=== PATIENT | female | born 1985 | race Caucasian/White ===

== ENCOUNTER → 2019-01-23 | Outpatient (CLI) | payer OTHER ==
--- NOTE | 2019-01-23 15:20 | 2DMMODE ---
[facility] [address] [place] [address] 2 D/M-MODE ECHOCARDIOGRAM Name: JOSH BARTLETT [id number] ������������� Admission: 01/23/19 ������������� Attend Phys: Jas Gardiner Discharge: ��� ������������� ��� Date of : 85 Date of Service: 01/23/19 1519 �� Report #: [id number] �������� ��������������������������������������������[id number] THIS REPORT FOR: //name// APPROVED REPORT Study performed: 01/23/2019 14:14:57 EXAM: Comprehensive 2D, Doppler, and color-flow Echocardiogram Patient Location: Out-Patient Room #: Echo lab 2 Status: routine BSA: 1.78 HR: 83 bpm BP: 110/64 mmHg Rhythm: NSR Other Information Study Quality: Good Indications Palpitations 2D Dimensions RVDd: 33.79 mm IVSd: 9.18 (7-11mm) LVOT Diam: 20.01 (18-24mm) LVDd: 48.55 mm PWd: 8.78 (7-11mm) Ascending Ao: 25.31 (22-36mm) LVDs: 34.21 (25-40mm) Aortic Root: 30.30 mm IVC: 14.00 mm Volumes Left Atrial Volume (Systole) Single Plane 4CH: 28.50 mL Single Plane 2CH: 27.30 mL LA ESV Index: 18.00 mL/m2 Aortic Valve AoV Peak Barney.: 1.15 m/s AO Peak Gr.: 5.33 mmHg LVOT Max P.78 mmHg LVOT Max V: 1.09 m/s LAURYN Vmax: 2.98 cm2 Mitral Valve E/A Ratio: 1.1 MV Decel. Time: 149.19 ms MV E Max Barney.: 0.61 m/s [facility] [address] [address] 2 D/M-MODE ECHOCARDIOGRAM Name: JOSH BARTLETT Room #: [facility] Tish#: [id number] ������������� Admission: 01/23/19 ������������� Attend Phys: Jas Gardiner Discharge: ��� ������������� ��� Date of : 85 Date of Service: 01/23/19 1519 �� Report #: [id number] �������� ��������������������������������������������[id number] MV A Barney.: 0.56 m/s MV PHT: 43.26 ms IVRT: 96.89 ms Pulmonary Valve PV Peak Barney.: 0.86 m/s PV Peak Gr.: 2.97 mmHg Pulmonary Vein P Vein S: 0.34 m/s P Vein A: 0.25 m/s P Vein D: 0.43 m/s P Vein A Dur.: 78.4 msec P Vein S/D Ratio: 0.79 Left Ventricle The left ventricle is normal size. There is normal LV segmental wall motion. There is normal left ventricular wall thickness. Left ventricular systolic function is normal. The left ventricular ejection fraction is within the normal range. LVEF is 55-60%. The left ventricular diastolic function is normal. Right Ventricle The right ventricle is normal size. The right ventricular systolic function is normal. Atria The left atrium size is normal. The right atrium size is normal. Aortic Valve The aortic valve is normal in structure. No aortic regurgitation is present. There is no aortic valvular stenosis. Mitral Valve The mitral valve is normal in structure. There is no mitral valve regurgitation noted. No evidence of mitral valve stenosis. Tricuspid Valve The tricuspid valve is normal in structure. There is no tricuspid valve regurgitation noted. Pulmonic Valve The pulmonary valve is normal in structure. There is no pulmonic valvular regurgitation. Great Vessels The aortic root is normal in size. IVC is normal in size and collapses >50% with inspiration. [address] [address] 2 D/M-MODE ECHOCARDIOGRAM Name: TRIJOSH Room #: JOSÉ MIGUEL Winston#: [id number] ������������� Admission: 01/23/19 ������������� Attend Phys: Jas [facility] Discharge: ��� ������������� ��� Date of : 85 Date of Service: 01/23/19 1519 �� Report #: [id number] �������� ��������������������������������������������[id number] Pericardium There is no pericardial effusion. <Conclusion> The left ventricle is normal size. There is normal left ventricular wall thickness. Left ventricular systolic function is normal. The right ventricle is normal size. The left atrium size is normal. The right atrium size is normal. The aortic valve is normal in structure. The mitral valve is normal in structure. There is no tricuspid valve regurgitation noted. ��������������������������������������������� <ELECTRONICALLY SIGNED> ���������������������������������������� By: Daniel Alicia MD ��������������������������������������������� 01/23/19 1519 18 18 Daniel Alicia MD /INF
== END ==
LOC: CV 08:23
DX: R00.2 Palpitations (principal); Z88.8 Allergy status to other drugs, medicaments and biological substances